=== PATIENT | female | born 1970 | race African-American/Black ===

== ENCOUNTER 2017-02-02 19:42 | Emergency (ER) | payer BC ==
[2017-02-02 15:01] LABS: BASOPHILS 0.4 %; BASOPHILS ABSOLUTE 0.02 10/3/uL (0.0-0.16); EOSINOPHILS 0.6 %; EOSINOPHILS ABSOLUTE 0.03 10/3/uL (0.0-0.53); ER CBC TAT 0 Hrs 05 Mins; HEMOGLOBIN 12.6 g/dL (12.0-16.0); IMMATURE GRANULOCYTES 0.2 %; IMMATURE GRANULOCYTES ABSOLUTE 0.01 10/3/uL (0.0-0.11); LYMPHOCYTES 42.6 %; LYMPHOCYTES ABSOLUTE 1.97 10/3/uL (0.67-4.30); MEAN CORPUSCULAR HEMOGLOB 28.4 pg (26.0-34.0); MEAN PLATELET VOLUME 11.8 fL (9.2-13.0); MONOCYTES 3.7 %; MONOCYTES ABSOLUTE 0.17 10/3/uL (0.21-1.20); NEUTROPHILS 52.5 %; NEUTROPHILS ABSOLUTE 2.42 10/3/uL (2.02-8.40); PLATELET COUNT 295 10/3/uL (150-400); RBC DISTRIBUTION WIDTH 13.5 % (12.0-16.0); RED CELL COUNT 4.44 10/6/uL (4.0-5.6); WHITE BLOOD CELLS 4.6 10/3/uL (4.5-10.5)
[2017-02-02 15:02] LABS: HEMATOCRIT 37.1 % (36.0-48.0); MANUAL DIFF NO %; MEAN CORPUSCULAR VOLUME 83.6 fL (80-100)
[2017-02-02 15:08] LABS: PARTIAL THROMBO TIME 24.2 SEC (22.5-37.2)
[2017-02-02 15:18] LABS: CALCIUM, SERUM 8.9 MG/DL (8.5-10.4); CHEST PAIN PROFILE TAT 0 Hrs 22 Mins; CHLORIDE, SERUM 103 MMOL/L (96-112); CO2 (CARBON DIOXIDE) 28 MMOL/L (24-34); CREATININE 1.14 MG/DL (0.55-1.02); GFR AFRICAN AMERICAN 67 ML/MIN (>=60); GFR NON AFRICAN AMERICAN 58 ML/MIN (>=60); POTASSIUM, SERUM 4.3 MMOL/L (3.5-5.3); SODIUM, SERUM 136 MMOL/L (135-148); TROPONIN I <0.02 NG/ML (<0.05)
[2017-02-02 15:19] LABS: BUN (BLOOD UREA NITROGEN) 18 MG/DL (6-23); GLUCOSE, SERUM 447 MG/DL (60-99)
[2017-02-02 18:49] LABS: ASCORBIC ACID (UR NOT ORDER) NEG (NEG); BILIRUBIN, URINE NEGATIVE (NEG); ER URINALYSIS TAT 0 Hrs 07 Mins; KETONE, URINE NEGATIVE (NEG); LEUKOCYTE ESTERASE(NOT OR NEG (NEG); NITRITE (URINE) NEG (NEG); WBC (NOT ORDERED) (RFLEX) 1 (0-5)
[2017-02-02 19:22] LABS: ALBUMIN 3.7 G/DL (3.5-5.0); ALKALINE PHOSPHATASE 80 U/L (45-117); SGPT(ALT) 29 U/L (5-65); TOTAL BILIRUBIN 0.4 MG/DL (0-1.2)
[2017-02-02 19:25] LABS: DIRECT BILIRUBIN < 0.1 MG/DL (0.0-0.4); INDIRECT BILIRUBIN(NOT ORDER) 0.3 MG/DL (0.1-0.9); SGOT(AST) 17 U/L (5-40)
[~2017-02-02 19:42] MED LIST: ASA5GR PO; ASAB PO; HUMALOG SC; HYDROCHLOROT12.5 MG PO; LANTUS SC; LANTUSCART SC; LIPITOR80 MG PO; LISINOPRIL40 MG PO; NORCO1 TAB; NORCO1 TAB PO; NOVOLOG SC; PLAVIX PO; TOPAMAX25 PO; VITAMIN D PO; VITAMIN D1000 UNI1 PO; ZANTAC150 MG PO; ZESTRIL40 MG PO; ZOCOR20 PO
== END 2017-02-02 22:41 | disposition home or self-care (01) ==
LOC: ER 19:42
PROVIDERS: Emergency Medicine; Hospitalist
DX: E11.9 Type 2 diabetes mellitus without complications (principal); I10 Essential (primary) hypertension; Z86.73 Personal history of transient ischemic attack (TIA), and cerebral infarction without residual deficits; Z88.5 Allergy status to narcotic agent; Z88.8 Allergy status to other drugs, medicaments and biological substances; Z88.6 Allergy status to analgesic agent; Z91.040 Latex allergy status; Z79.899 Other long term (current) drug therapy; Z79.4 Long term (current) use of insulin; Z79.82 Long term (current) use of aspirin
CPT/HCPCS: 71020; 80048; 80076; 81001; 82962; 83690; 83735; 84484; 85025; 85610; 85730; 93005; 96374; 96375; 96376; 99285; A9270-GY; J1170; J2405

== ENCOUNTER 2017-03-01 15:04 | Emergency (ER) | payer BC | END 2017-03-01 15:08 | disposition home or self-care (01) | LOC: ER 15:04 | PROC: 2W38X1Z Immobilization of Right Upper Extremity using Splint (ICD-10-PCS; principal; 2017-03-01) | DX: S63.501A Unspecified sprain of right wrist, initial encounter (principal); M25.511 Pain in right shoulder; M54.2 Cervicalgia; M54.5 Low back pain; I10 Essential (primary) hypertension; I25.2 Old myocardial infarction; E11.9 Type 2 diabetes mellitus without complications; Z86.73 Personal history of transient ischemic attack (TIA), and cerebral infarction without residual deficits; Z88.5 Allergy status to narcotic agent; Z88.8 Allergy status to other drugs, medicaments and biological substances; Z88.6 Allergy status to analgesic agent; Z91.040 Latex allergy status; Z88.1 Allergy status to other antibiotic agents; Z79.4 Long term (current) use of insulin; Z79.82 Long term (current) use of aspirin; Z79.899 Other long term (current) drug therapy; W19.XXXA Unspecified fall, initial encounter | CPT/HCPCS: 72040; 72100; 73080-RT; 73110-RT; 73130-RT; 99283; A9270-GY; J2360 ==